=== PATIENT | female | born 1985 | race Caucasian/White ===

== ENCOUNTER 2024-02-24 10:40 | Emergency (ER) | payer OTHER | END 2024-02-24 11:35 | disposition home or self-care (01) | LOC: FB.ED 10:40 | DX: S51.811A Laceration without foreign body of right forearm, initial encounter (principal); Z88.8 Allergy status to other drugs, medicaments and biological substances; W26.8XXA Contact with other sharp object(s), not elsewhere classified, initial encounter | CPT/HCPCS: 99282 ==

== ENCOUNTER 2024-04-19 12:49 | Emergency (ER) | payer SELFPAY | END 2024-04-19 13:35 | disposition home or self-care (01) | LOC: FB.ED 12:49 | DX: L03.113 Cellulitis of right upper limb (principal); F17.210 Nicotine dependence, cigarettes, uncomplicated; Z88.8 Allergy status to other drugs, medicaments and biological substances | CPT/HCPCS: 99283 ==